=== PATIENT | female | born 1990 | race American Indian/Alaskan Native ===

== ENCOUNTER 2019-07-18 11:20 | Inpatient (IN) | payer MEDICAID ==
--- NOTE | 2019-07-18 11:31 | Event Note ---
ED Screening Note Date of service: 07/18/19 Time: 11:27 ED Screening Note: This is a 28 y.o. F. that presents to the ER with nausea and vomiting x 1 week. Patient reports she is 14 weeks . Followed by [facility] in [place]. PMH DM1 Patient states she was placed on phenergan which is not working. LMP 04/12/2019, A1 This initial assessment/diagnostic orders/clinical plan/treatment(s) is/are subject to change based on patients health status, clinical progression and re- assessment by fellow clinical providers in the ED. Further treatment and workup at subsequent clinical providers discretion. Patient/guardian urged not to elope from the ED as their condition may be serious if not clinically assessed and managed. Initial orders include: Labs Accucheck 229
[2019-07-18] MEDS ORDERED: NACL 0.9% 1000 ML 1,000 ML IV ONE ×2 (11:40→14:20)
--- NOTE | 2019-07-18 11:48 | Emergency Department Report ---
HPI <CARTER BASURTO - Last Filed: 07/18/19 14:28> - HPI HPI: 28 YO FEMALE PRESENTS 14 W WITH NAUSEA VOMITING AND DIARRHEA. REPORTS BEING TYPE I DM ON INSULIN. NO FEVER OR CHILLS. JUST WEAK. 14 W . DENIES COUGH OR CONGESTION. DENIES DYSURIA OR BACK PAIN. DENIES VAG BLEED OR DISCHARGE HAS SEEN [facility] AND THEY ARE "DOING NOTHING" [id number] DENIES DRUGS/ETOH/CIG LMP 6-8 EDC 3-8-20 <TRANG HINES - Last Filed: 07/18/19 15:43> - General Chief Complaint: Nausea/Vomiting/Diarrhea Time Seen by Provider: 07/18/19 11:27 ED Past Medical Hx <CARTER BASURTO - Last Filed: 07/18/19 14:28> - Past Medical History Previous Medical History?: Yes Hx Diabetes: Yes - Surgical History Past Surgical History?: No - Family History Family history: no significant - Social History Smoking Status: Never Smoker Substance Use Type: None <TRANG HINES - Last Filed: 07/18/19 15:43> - Medications Home Medications: Home Medications Medication Instructions Recorded Confirmed Last Taken Type Insulin Glargine [Lantus] 30 unit SUB-Q QHS 07/18/19 07/18/19 Unknown History Lispro Insulin [HumaLOG] 1 - 10 unit SQ DAILY 07/18/19 07/18/19 Unknown History Vit-Fe Fumar-FA [ 1 tab PO DAILY 07/18/19 07/18/19 Unknown History Vitamin] ED Review of Systems ROS: Stated complaint: 14 WKS /N/V Other details as noted in HPI <CARTER BASURTO - Last Filed: 07/18/19 14:28> ROS: Stated complaint: 14 WKS /N/V Other details as noted in HPI Comment: All other systems reviewed and negative <TRANG HINES - Last Filed: 07/18/19 15:43> Physical Exam - Physical Exam Vital Signs: Vital Signs 07/18/19 07/18/19 11:27 11:30 Temperature 97.7 F Pulse Rate 98 H 137 H Respiratory 16 Rate Blood Pressure 145/102 O2 Sat by Pulse 98 Oximetry <CARTER BASURTO - Last Filed: 07/18/19 14:28> - Physical Exam Vital Signs: Vital Signs 07/18/19 07/18/19 11:27 11:30 Temperature 97.7 F Pulse Rate 98 H 137 H Respiratory 16 Rate Blood Pressure 145/102 O2 Sat by Pulse 98 Oximetry Physical Exam: ALERT AND ORIENTED NO FOCAL DEFICIT S1 S2 HR 90 ON EXAM LUNGS CTA ABD SNT NO CVA TENDERNESS NO JVD NO EDEMA <TRANG HINES - Last Filed: 07/18/19 15:43> ED Course Vital Signs 07/18/19 07/18/19 11:27 11:30 Temperature 97.7 F Pulse Rate 98 H 137 H Respiratory 16 Rate Blood Pressure 145/102 O2 Sat by Pulse 98 Oximetry - Reevaluation(s) Reevaluation #1: 07/18/19 14:24 Patient examined by me. Patient reports that her nausea is improved but she continues to feel weak overall. Patient's labs were reviewed and show significant leukocytosis. Patient denies fever. UA unremarkable for UTI. Patient complains of some mild lower abdominal pain with minimal tenderness on examination. Patient denies previous abdominal surgeries. She reports by mouth intolerance for several days. She has received 1 L of normal saline, 3 units of regular insulin, and 4 mg of Zofran. Repeat heart rate noted to be in the 130s. Requested a repeat vital signs, case monitor, EEG, additional normal saline, and repeat was glucose test was ordered and insulin insulin was provided at 12:56 PM. Patient has an anion gap metabolic acidosis can be due to DKA versus starvation ketosis secondary to dehydration and by mouth intolerance. By mouth potassium ordered however the patient cannot tolerate by mouth dosing IV will be ordered. Plan to admit to hospitalist service with [facility] consultation. <CARTER BASURTO C - Last Filed: 07/18/19 14:28> Vital Signs 07/18/19 07/18/19 11:27 11:30 Temperature 97.7 F Pulse Rate 98 H 137 H Respiratory 16 Rate Blood Pressure 145/102 O2 Sat by Pulse 98 Oximetry - Reevaluation(s) Reevaluation #2: 07/18/19 15:34 [facility] AWARE OF PT PRESENTATION. DR TEJADA PUBLIC RELATIONS ACCOUNT SUPERVISOR AND WILL FOLLOW WITH DR MYERS. CONCURS WITH ADMIT FOR HYPEREMESIS. <PJDiyaTRANG BAUMANN A - Last Filed: 07/18/19 15:43> ED Medical Decision Making - Lab Data Result diagrams: 07/18/19 11:40 07/18/19 11:40 <SHERINEMAMIECARTER C - Last Filed: 07/18/19 14:28> - Lab Data Result diagrams: 07/18/19 11:40 07/18/19 11:40 - EKG Data EKG shows normal: sinus rhythm Rate: tachycardia - EKG Data Interpretation: no acute changes - Radiology Data Radiology results: image reviewed - Medical Decision Making Lab Results 07/18/19 07/18/19 07/18/19 Range/Units 11:34 11:40 11:40 WBC 22.2 H (4.5-11.0) K/mm3 RBC 5.14 H (3.65-5.03) M/mm3 Hgb 15.4 H (10.1-14.3) gm/dl Hct 44.6 H (30.3-42.9) % MCV 87 (79-97) fl MCH 30 (28-32) pg MCHC 34 (30-34) % RDW 14.1 (13.2-15.2) % Plt Count 489 H (140-440) K/mm3 Add Manual Diff Complete Total Counted 100 Seg Neuts % (Manual) 86.0 H (40.0-70.0) % Band Neutrophils % 1.0 % Lymphocytes % (Manual) 10.0 L (13.4-35.0) % Reactive Lymphs % (Man) 1.0 % Monocytes % (Manual) 2.0 (0.0-7.3) % Eosinophils % (Manual) 0 (0.0-4.3) % Basophils % (Manual) 0 (0.0-1.8) % Metamyelocytes % 0 % Myelocytes % 0 % Promyelocytes % 0 % Blast Cells % 0 % Nucleated RBC % Not Reportable Seg Neutrophils # Man 19.1 H (1.8-7.7) K/mm3 Band Neutrophils # 0.2 K/mm3 Lymphocytes # (Manual) 2.2 (1.2-5.4) K/mm3 Abs React Lymphs (Man) 0.2 K/mm3 Monocytes # (Manual) 0.4 (0.0-0.8) K/mm3 Eosinophils # (Manual) 0.0 (0.0-0.4) K/mm3 Basophils # (Manual) 0.0 (0.0-0.1) K/mm3 Metamyelocytes # 0.0 K/mm3 Myelocytes # 0.0 K/mm3 Promyelocytes # 0.0 K/mm3 Blast Cells # 0.0 K/mm3 WBC Morphology Not Reportable Hypersegmented Neuts Not Reportable Hyposegmented Neuts Not Reportable Hypogranular Neuts Not Reportable Smudge Cells Not Reportable Toxic Granulation Not Reportable Toxic Vacuolation Not Reportable Dohle Bodies Not Reportable Pelger-Huet Anomaly Not Reportable Janette Rods Not Reportable Platelet Estimate Consistent w auto Clumped Platelets Not Reportable Plt Clumps, EDTA Not Reportable Large Platelets Not Reportable Giant Platelets Not Reportable Platelet Satelliting Not Reportable Plt Morphology Comment Not Reportable RBC Morphology Not Reportable Dimorphic RBCs Not Reportable Polychromasia Not Reportable Hypochromasia Not Reportable Poikilocytosis Few Anisocytosis Few Microcytosis Not Reportable Macrocytosis Not Reportable Spherocytes Not Reportable Pappenheimer Bodies Not Reportable Sickle Cells Not Reportable Target Cells Not Reportable Tear Drop Cells Not Reportable Ovalocytes Not Reportable Helmet Cells Not Reportable Danielle-Reddell Bodies Not Reportable [place] Rings Not Reportable [place] Cells Not Reportable Bite Cells Not Reportable Crenated Cell Not Reportable Elliptocytes Not Reportable Acanthocytes (Spur) Not Reportable Rouleaux Not Reportable Hemoglobin C Crystals Not Reportable Schistocytes Not Reportable Malaria parasites Not Reportable Eddie Bodies Not Reportable Hem Pathologist Commnt No VBG pH (7.320-7.420) Sodium 132 L (137-145) mmol/L Potassium 3.4 L (3.6-5.0) mmol/L Chloride 89.2 L (98-107) mmol/L Carbon Dioxide 14 L (22-30) mmol/L Anion Gap 32 mmol/L BUN 8 (7-17) mg/dL Creatinine 0.9 (0.7-1.2) mg/dL Estimated GFR > 60 ml/min BUN/Creatinine Ratio 9 % Glucose 242 H (65-100) mg/dL POC Glucose 229 H (70-105) Calcium 9.7 (8.4-10.2) mg/dL Total Bilirubin 0.40 (0.1-1.2) mg/dL AST 16 (5-40) units/L ALT 11 (7-56) units/L Alkaline Phosphatase 66 (35-129) units/L Total Protein 8.7 H (6.3-8.2) g/dL Albumin 4.3 (3.9-5) g/dL Albumin/Globulin Ratio 1.0 % Lipase (13-60) units/L Urine Color (Yellow) Urine Turbidity (Clear) Urine pH (5.0-7.0) Ur Specific [place] (1.003-1.030) Urine Protein (Negative) mg/dL Urine Glucose (UA) (Negative) mg/dL Urine Ketones (Negative) mg/dL Urine Blood (Negative) Urine Nitrite (Negative) Ur Reducing Substances Urine Bilirubin (Negative) Urine Ictotest Urine Urobilinogen (<2.0) mg/dL Ur Leukocyte Esterase (Negative) Urine WBC (Auto) (0.0-6.0) /HPF Urine RBC (Auto) (0.0-6.0) /HPF U Epithel Cells (Auto) (0-13.0) /HPF Urine Bacteria (Auto) (Negative) /HPF Urine Mucus /HPF 07/18/19 07/18/19 07/18/19 Range/Units 11:40 11:51 Unknown WBC (4.5-11.0) K/mm3 RBC (3.65-5.03) M/mm3 Hgb (10.1-14.3) gm/dl Hct (30.3-42.9) % MCV (79-97) fl MCH (28-32) pg MCHC (30-34) % RDW (13.2-15.2) % Plt Count (140-440) K/mm3 Add Manual Diff Total Counted Seg Neuts % (Manual) (40.0-70.0) % Band Neutrophils % % Lymphocytes % (Manual) (13.4-35.0) % Reactive Lymphs % (Man) % Monocytes % (Manual) (0.0-7.3) % Eosinophils % (Manual) (0.0-4.3) % Basophils % (Manual) (0.0-1.8) % Metamyelocytes % % Myelocytes % % Promyelocytes % % Blast Cells % % Nucleated RBC % Seg Neutrophils # Man (1.8-7.7) K/mm3 Band Neutrophils # K/mm3 Lymphocytes # (Manual) (1.2-5.4) K/mm3 Abs React Lymphs (Man) K/mm3 Monocytes # (Manual) (0.0-0.8) K/mm3 Eosinophils # (Manual) (0.0-0.4) K/mm3 Basophils # (Manual) (0.0-0.1) K/mm3 Metamyelocytes # K/mm3 Myelocytes # K/mm3 Promyelocytes # K/mm3 Blast Cells # K/mm3 WBC Morphology Hypersegmented Neuts Hyposegmented Neuts Hypogranular Neuts Smudge Cells Toxic Granulation Toxic Vacuolation Dohle Bodies Pelger-Huet Anomaly Janette Rods Platelet Estimate Clumped Platelets Plt Clumps, EDTA Large Platelets Giant Platelets Platelet Satelliting Plt Morphology Comment RBC Morphology Dimorphic RBCs Polychromasia Hypochromasia Poikilocytosis Anisocytosis Microcytosis Macrocytosis Spherocytes Pappenheimer Bodies Sickle Cells Target Cells Tear Drop Cells Ovalocytes Helmet Cells Danielle-Reddell Bodies [place] Rings Richard Cells Bite Cells Crenated Cell Elliptocytes Acanthocytes (Spur) Rouleaux Hemoglobin C Crystals Schistocytes Malaria parasites Eddie Bodies Hem Pathologist Commnt VBG pH 7.295 L (7.320-7.420) Sodium (137-145) mmol/L Potassium (3.6-5.0) mmol/L Chloride (98-107) mmol/L Carbon Dioxide (22-30) mmol/L Anion Gap mmol/L BUN (7-17) mg/dL Creatinine (0.7-1.2) mg/dL Estimated GFR ml/min BUN/Creatinine Ratio % Glucose (65-100) mg/dL POC Glucose (70-105) Calcium (8.4-10.2) mg/dL Total Bilirubin (0.1-1.2) mg/dL AST (5-40) units/L ALT (7-56) units/L Alkaline Phosphatase (35-129) units/L Total Protein (6.3-8.2) g/dL Albumin (3.9-5) g/dL Albumin/Globulin Ratio % Lipase 38 (13-60) units/L Urine Color Yellow (Yellow) Urine Turbidity Slightly-cloudy (Clear) Urine pH 5.0 (5.0-7.0) Ur Specific [place] 1.017 (1.003-1.030) Urine Protein >2000 mg dl (Negative) mg/dL Urine Glucose (UA) >=500 (Negative) mg/dL Urine Ketones 80 (Negative) mg/dL Urine Blood Mod (Negative) Urine Nitrite Neg (Negative) Ur Reducing Substances Not Reportable Urine Bilirubin Neg (Negative) Urine Ictotest Not Reportable Urine Urobilinogen < 2.0 (<2.0) mg/dL Ur Leukocyte Esterase Neg (Negative) Urine WBC (Auto) 3.0 (0.0-6.0) /HPF Urine RBC (Auto) 1.0 (0.0-6.0) /HPF U Epithel Cells (Auto) 1.0 (0-13.0) /HPF Urine Bacteria (Auto) 1+ (Negative) /HPF Urine Mucus Few /HPF Vital Signs 07/18/19 07/18/19 11:27 11:30 Temperature 97.7 F Pulse Rate 98 H 137 H Respiratory 16 Rate Blood Pressure 145/102 O2 Sat by Pulse 98 Oximetry PT DENIES ANY DYSURIA OR VAG BLEED OR DC; NO ABD PAIN . PT DENIES COUGH OR CONGESTION. PT DENIES FEVER OR CHILLS. BLOOD GLUCOSE NOTED ON ADMIT TO ACC VENOUS PH NOTED ADDITIONAL LABS PENDING INSULIN/NS FOR HYPERGLYCEMIA; RN HAD DIFFICULTY PLACING LINE; ON MY REEXAM LINE NEEDED TO BE RESTARTED ZOFRAN FOR NAUSEA VOMITING 1405 DR BASURTO AWARE OF PT PRESENTATION LABS NS INFUSING INSULIN GIVEN IV 1400 REPEAT ACCU CHECK PENDING - RN AWARE 1415 DR MYERS PAGED PER DR BASURTO FOR EVAL FOR ADMIT GIVEN /VOMITING/HYPERGLYCEMIA/DKA URINE NOTED- NO NITRATES/LEUK US BEING COMPLETED AT BEDSIDE. 1500 [facility] AWARE OF PT ADMIT, SEE ABOVE 1515 DR MYERS TO SEE PT. ADMIT TO ICU FOR DKA. 12 LEAD EKG NOTED - ST PT BEING ADMITTED TO ICU FOR FURTHER MANAGEMENT. - Differential Diagnosis RO DKA/HYPEREMESIS V VOMITING SECONDARY TO ; RO AB; RO UTI <TRANG HINES - Last Filed: 07/18/19 15:43> Critical care attestation.: If time is entered above; I have spent that time in minutes in the direct care of this critically ill patient, excluding procedure time. <CARTER BASURTO - Last Filed: 07/18/19 14:28> Critical care attestation.: If time is entered above; I have spent that time in minutes in the direct care of this critically ill patient, excluding procedure time. <TRANG HINES - Last Filed: 07/18/19 15:43> ED Disposition <CARTER BASURTO - Last Filed: 07/18/19 14:28> Is pt being admited?: Yes Does the pt Need Aspirin: No Time of Disposition: 14:15 <TRANG HINES - Last Filed: 07/18/19 15:43> Clinical Impression: , Hyperemesis, DKA (diabetic ketoacidoses) Disposition: OP ADMIT IP TO THIS HOSP Condition: Stable
[2019-07-18 11:54] LABS: Hematocrit 44.6 % (30.3-42.9); Hemoglobin 15.4 gm/dl (10.1-14.3); Mean Corpuscular HGB Conc 34 % (30-34); Mean Corpuscular Volume 87 fl (79-97); Platelet Count 489 K/mm3 (140-440); Red Blood Count 5.14 M/mm3 (3.65-5.03); Red Cell Distribution Width 14.1 % (13.2-15.2)
[2019-07-18 12:14] LABS: Alanine Aminotransferase 11 units/L (7-56); Albumin 4.3 g/dL (3.9-5); BUN/Creatinine Ratio 9; Blood Urea Nitrogen 8 mg/dL (7-17); Calcium 9.7 mg/dL (8.4-10.2); Hemolysis Index 36
[2019-07-18] MEDS ORDERED: ZOFRAN IV ONE (12:23)
[2019-07-18] MEDS ORDERED: HumuLIN R IV ONE (12:31)
[2019-07-18 13:42] LABS: Bacteria,Urine 1+ /HPF (Negative); Bilirubin,Urine NEG (Negative); Blood,Urine MOD (Negative); Color,Urine Yellow (Yellow); Mucus,Urine FEW /HPF; Urobilinogen,Urine < 2.0 mg/dL (<2.0)
[2019-07-18 13:43] LABS: Protein,Urine >2000 mg dL mg/dL (Negative)
[2019-07-18 14:12] LABS: Band Neutrophils # (Manual) 0.2 K/mm3; Basophils % (Manual) 0 % (0.0-1.8); Eosinophils % (Manual) 0 % (0.0-4.3); Total Cells Counted 100
[2019-07-18 14:14] LABS: Anisocytosis Few; Platelet Estimate Consistent w Auto; Poikilocytosis Few
[2019-07-18] MEDS ORDERED: K-DUR PO ONE (14:24)
[2019-07-18] MEDS ORDERED: D5/0.45NS 1,000 ML IV SCH (15:00)
--- NOTE | 2019-07-18 15:26 | Ultrasound Report ---
ULTRASOUND OBSTETRIC INDICATION / CLINICAL INFORMATION: PREG W WEAKNESS. Clinical Gestational Age (GA): 15 weeks 1 day TECHNIQUE: Transabdominal. COMPARISON: None available. FINDINGS: There is a single intrauterine . Biparietal Diameter = 2.9 cm = 15 weeks, 1 day(s). Head Circumference = 10.5 cm = 15 weeks, 0 day(s). Abdominal Circumference = 8.8 cm = 15 weeks, 0 day(s). Femur Length = 1.8 cm = 15 weeks, 1 day(s). Average Ultrasound Age (AUA) = 15 weeks, 1 day(s). HC/AC ratio: 1.2 Cephalic index: 88.1 Heart Rate: 160 beats per minute. Position: cephalic. Cervix: closed. Length in cm (if measured): 3.7 Placenta: Anterior, grade 1 and free of the os. Amniotic Fluid Volume: normal Amniotic Fluid Index (ANDREZ) in cm (if calculated): Not measured. Maternal Adnexa: No significant abnormality. anatomical survey was not performed. IMPRESSION: 1. Single, living intrauterine with estimated sonographic age of 15 weeks, 1 day(s). 2. No significant sonographic abnormality. Signer Name: Chip Young Jr, MD Signed: 07/18/2019 3:22 PM Workstation Name: [id number]
[2019-07-18 15:49] LABS: BUN/Creatinine Ratio 11; Blood Urea Nitrogen 8 mg/dL (7-17); Calcium 9.8 mg/dL (8.4-10.2); Hemolysis Index 23
[2019-07-18] MEDS ORDERED: DILAUDID IV PRN (16:25)
[2019-07-18] MEDS ORDERED: SODIUM CHLORIDE FLUSH SYRINGE 10 ML IV PRN (16:25)
[2019-07-18] MEDS ORDERED: TYLENOL PO PRN (16:25)
[2019-07-18] MEDS ORDERED: D50W (25GM) Syringe IV PRN (16:27)
[2019-07-18] MEDS ORDERED: HumuLIN R 100 UNITS in NACL 0.9% 99 ML IV SCH (17:00)
[2019-07-18] MEDS ORDERED: D5W/0.45% NACL/KCL 20 MEQ 20 MEQ/1,000 ML BAG IV ONE (17:12)
[2019-07-18] MEDS: D5W/0.45% NACL/KCL 20 MEQ 20 MEQ/1,000 ML BAG IV SCH (17:32)
[2019-07-18] MEDS: ZOFRAN IV PRN (17:37)
[2019-07-18] MEDS ORDERED: ZOFRAN ONE (17:38)
[2019-07-18 19:37] LABS: BUN/Creatinine Ratio 12; Blood Urea Nitrogen 7 mg/dL (7-17); Calcium 8.4 mg/dL (8.4-10.2); Hemolysis Index 14
[2019-07-18 21:32] LABS: BUN/Creatinine Ratio 14; Blood Urea Nitrogen 7 mg/dL (7-17); Calcium 8.6 mg/dL (8.4-10.2); Hemolysis Index 60
[2019-07-18] MEDS: PEPCID IV SCH (23:42)
[2019-07-18] MEDS: SODIUM CHLORIDE FLUSH SYRINGE 10 ML IV SCH (23:43)
[2019-07-19] MEDS: KCL 10MEQ/100ML 10 MEQ/100 ML BAG IV SCH ×7 (00:11→13:45)
[2019-07-19] MEDS ORDERED: ZOFRAN ONE ×4 (01:39→19:20)
[2019-07-19] MEDS ORDERED: NACL 0.9% 1000 ML 1,000 ML ONE (01:40)
[2019-07-19] MEDS ORDERED: D5W/0.45% NACL/KCL 20 MEQ 20 MEQ/1,000 ML BAG IV ONE ×2 (04:29→13:14)
[2019-07-19] MEDS: D5W/0.45% NACL/KCL 20 MEQ 20 MEQ/1,000 ML BAG IV SCH ×2 (04:56→13:29)
[2019-07-19 05:03] LABS: Basophils # (Auto) 0.1 K/mm3 (0.0-0.1); Basophils % (Auto) 0.6 % (0.0-1.8); Eosinophils % (Auto) 0.2 % (0.0-4.3); Hematocrit 39.1 % (30.3-42.9); Hemoglobin 13.6 gm/dl (10.1-14.3); Lymphocytes # (Auto) 2.1 K/mm3 (1.2-5.4); Lymphocytes % (Auto) 13.2 % (13.4-35.0); Mean Corpuscular HGB Conc 35 % (30-34); Mean Corpuscular Volume 87 fl (79-97); Monocytes # (Auto) 1.3 K/mm3 (0.0-0.8); Monocytes % (Auto) 8.1 % (0.0-7.3); Platelet Count 371 K/mm3 (140-440); Red Blood Count 4.48 M/mm3 (3.65-5.03); Red Cell Distribution Width 14.6 % (13.2-15.2)
[2019-07-19 05:23] LABS: Alanine Aminotransferase 9 units/L (7-56); Albumin 3.6 g/dL (3.9-5); BUN/Creatinine Ratio 10; Blood Urea Nitrogen 5 mg/dL (7-17); Calcium 8.6 mg/dL (8.4-10.2); Hemolysis Index 21
--- NOTE | 2019-07-19 06:14 | History and Physical Report ---
History of Present Illness Date of examination: 07/18/19 Date of admission: 07/18/19 15:13 Chief complaint: N/V/D for 1 day History of present illness: 28 y/o female with IDDM presents with nausea vomiting and diarrhea for 1 day.Unable to keep anything sown.Has IDDM.Is 14 weeks .No abd cramping or vaginal bleeding.No fever or chills. Past Medical History Previous Medical History?: Yes Diabetes: Yes Surgical History Past Surgical History?: No Family History Family history: no significant Social History Smoking Status: Never Smoker Substance Use Type: None Review of Systems ROS: Stated complaint: 14 WKS /N/V Other details as noted in HPI Medications and Allergies Allergies Allergy/AdvReac Type Severity Reaction Status Date / Time No Known Allergies Allergy Unverified 07/18/19 11:22 Home Medications Medication Instructions Recorded Confirmed Last Taken Type Insulin Glargine [Lantus] 30 unit SUB-Q QHS 07/18/19 07/18/19 Unknown History Lispro Insulin [HumaLOG] 1 - 10 unit SQ DAILY 07/18/19 07/18/19 Unknown History Vit-Fe Fumar-FA [ 1 tab PO DAILY 07/18/19 07/18/19 Unknown History Vitamin] Active Meds: Active Medications Acetaminophen (Tylenol) 650 mg PO Q4H PRN PRN Reason: Pain MILD(1-3)/Fever >100.5/CRUZ Dextrose (D50w (25gm) Syringe) 0 ml IV PRN PRN PRN Reason: Hypoglycemia Famotidine (Pepcid) 20 mg IV BID GENE Last Admin: 07/18/19 23:42 Dose: 20 mg Documented by: Hydromorphone HCl (Dilaudid) 0.5 mg IV Q3H PRN PRN Reason: Pain , Severe (7-10) Sodium Chloride (Nacl 0.9% 1000 Ml) 1,000 mls @ 100 mls/hr IV DIRECT GENE Insulin Human Regular 100 (units/ Sodium Chloride) 100 mls @ 1 mls/hr IV TITR GENE; Protocol Last Titration: 07/19/19 05:30 Dose: 2 units/hr, 2 mls/hr Documented by: Potassium Chloride/Dextrose/Sod Cl (D5w/0.45% Nacl/Kcl 20 Meq) 20 meq in 1,000 mls @ 125 mls/hr IV DIRECT GENE Last Admin: 07/19/19 04:56 Dose: 125 mls/hr Documented by: Ondansetron HCl (Zofran) 4 mg IV Q8H PRN PRN Reason: Nausea And Vomiting Last Admin: 07/18/19 17:37 Dose: 4 mg Documented by: Sodium Chloride (Sodium Chloride Flush Syringe 10 Ml) 10 ml IV BID GENE Last Admin: 07/18/19 23:43 Dose: 10 ml Documented by: Sodium Chloride (Sodium Chloride Flush Syringe 10 Ml) 10 ml IV PRN PRN PRN Reason: LINE FLUSH Exam - Constitutional Vitals: Temp Pulse Resp BP Pulse Ox 97.7 F 100 H 17 145/91 100 07/18/19 11:27 07/19/19 05:00 07/19/19 05:00 07/19/19 05:00 07/18/19 18:05 General appearance: Present: mild distress, well-nourished - EENT Eyes: Present: PERRL ENT: hearing intact, clear oral mucosa - Neck Neck: Present: supple, normal ROM - Respiratory Respiratory effort: normal Respiratory: bilateral: CTA - Cardiovascular Heart rate: 78 Rhythm: regular Heart Sounds: Present: S1 & S2. Absent: rub, click - Extremities Extremities: no ischemia, pulses intact, pulses symmetrical, No edema Peripheral Pulses: within normal limits - Abdominal General gastrointestinal: Present: soft, non-tender, non-distended, normal bowel sounds Female genitourinary: Present: normal - Rectal Rectal Exam: deferred - Integumentary Integumentary: Present: clear, warm, dry - Musculoskeletal Musculoskeletal: gait normal, strength equal bilaterally - Psychiatric Psychiatric: appropriate mood/affect, intact judgment & insight - Neurologic Neurologic: CNII-XII intact, moves all extremities - Allied Health Allied health notes reviewed: nursing, case management Results - Labs CBC & Chem 7: 07/19/19 04:50 07/19/19 04:50 Labs: Laboratory Last Values WBC 15.7 K/mm3 (4.5-11.0) H 07/19/19 04:50 RBC 4.48 M/mm3 (3.65-5.03) 07/19/19 04:50 Hgb 13.6 gm/dl (10.1-14.3) 07/19/19 04:50 Hct 39.1 % (30.3-42.9) 07/19/19 04:50 MCV 87 fl (79-97) 07/19/19 04:50 MCH 30 pg (28-32) 07/19/19 04:50 MCHC 35 % (30-34) H 07/19/19 04:50 RDW 14.6 % (13.2-15.2) 07/19/19 04:50 Plt Count 371 K/mm3 (140-440) 07/19/19 04:50 Lymph % (Auto) 13.2 % (13.4-35.0) L 07/19/19 04:50 [place] % (Auto) 8.1 % (0.0-7.3) H 07/19/19 04:50 Eos % (Auto) 0.2 % (0.0-4.3) 07/19/19 04:50 Baso % (Auto) 0.6 % (0.0-1.8) 07/19/19 04:50 Lymph # 2.1 K/mm3 (1.2-5.4) 07/19/19 04:50 [place] # 1.3 K/mm3 (0.0-0.8) H 07/19/19 04:50 Eos # 0.0 K/mm3 (0.0-0.4) 07/19/19 04:50 Baso # 0.1 K/mm3 (0.0-0.1) 07/19/19 04:50 Add Manual Diff Complete 07/18/19 11:40 Total Counted 100 07/18/19 11:40 Seg Neutrophils % 77.9 % (40.0-70.0) H 07/19/19 04:50 Seg Neuts % (Manual) 86.0 % (40.0-70.0) H 07/18/19 11:40 1.0 % 07/18/19 11:40 10.0 % (13.4-35.0) L 07/18/19 11:40 Reactive Lymphs % (Man) 1.0 % 07/18/19 11:40 2.0 % (0.0-7.3) 07/18/19 11:40 0 % (0.0-4.3) 07/18/19 11:40 0 % (0.0-1.8) 07/18/19 11:40 0 % 07/18/19 11:40 0 % 07/18/19 11:40 0 % 07/18/19 11:40 0 % 07/18/19 11:40 Nucleated RBC % Not Reportable 07/18/19 11:40 Seg Neutrophils # 12.3 K/mm3 (1.8-7.7) H 07/19/19 04:50 Seg Neutrophils # Man 19.1 K/mm3 (1.8-7.7) H 07/18/19 11:40 Band Neutrophils # 0.2 K/mm3 07/18/19 11:40 2.2 K/mm3 (1.2-5.4) 07/18/19 11:40 Abs React Lymphs (Man) 0.2 K/mm3 07/18/19 11:40 0.4 K/mm3 (0.0-0.8) 07/18/19 11:40 0.0 K/mm3 (0.0-0.4) 07/18/19 11:40 0.0 K/mm3 (0.0-0.1) 07/18/19 11:40 0.0 K/mm3 07/18/19 11:40 0.0 K/mm3 07/18/19 11:40 0.0 K/mm3 07/18/19 11:40 Blast Cells # 0.0 K/mm3 07/18/19 11:40 WBC Morphology Not Reportable 07/18/19 11:40 Hypersegmented Neuts Not Reportable 07/18/19 11:40 Hyposegmented Neuts Not Reportable 07/18/19 11:40 Hypogranular Neuts Not Reportable 07/18/19 11:40 Not Reportable 07/18/19 11:40 Not Reportable 07/18/19 11:40 Not Reportable 07/18/19 11:40 Not Reportable 07/18/19 11:40 Not Reportable 07/18/19 11:40 Not Reportable 07/18/19 11:40 Consistent w auto 07/18/19 11:40 Not Reportable 07/18/19 11:40 Plt Clumps, EDTA Not Reportable 07/18/19 11:40 Not Reportable 07/18/19 11:40 Not Reportable 07/18/19 11:40 Not Reportable 07/18/19 11:40 Plt Morphology Comment Not Reportable 07/18/19 11:40 RBC Morphology Not Reportable 07/18/19 11:40 Dimorphic RBCs Not Reportable 07/18/19 11:40 Not Reportable 07/18/19 11:40 Not Reportable 07/18/19 11:40 Few 07/18/19 11:40 Few 07/18/19 11:40 Not Reportable 07/18/19 11:40 Not Reportable 07/18/19 11:40 Not Reportable 07/18/19 11:40 Not Reportable 07/18/19 11:40 Not Reportable 07/18/19 11:40 Not Reportable 07/18/19 11:40 Not Reportable 07/18/19 11:40 Not Reportable 07/18/19 11:40 Not Reportable 07/18/19 11:40 Not Reportable 07/18/19 11:40 Not Reportable 07/18/19 11:40 Not Reportable 07/18/19 11:40 Not Reportable 07/18/19 11:40 Not Reportable 07/18/19 11:40 Not Reportable 07/18/19 11:40 Acanthocytes (Spur) Not Reportable 07/18/19 11:40 Rouleaux Not Reportable 07/18/19 11:40 Not Reportable 07/18/19 11:40 Not Reportable 07/18/19 11:40 Not Reportable 07/18/19 11:40 Not Reportable 07/18/19 11:40 Hem Pathologist Commnt No 07/18/19 11:40 VBG pH 7.295 (7.320-7.420) L 07/18/19 11:51 Sodium 134 mmol/L (137-145) L 07/19/19 04:50 Potassium 3.3 mmol/L (3.6-5.0) L 07/19/19 04:50 Chloride 99.6 mmol/L (98-107) 07/19/19 04:50 Carbon Dioxide 16 mmol/L (22-30) L 07/19/19 04:50 22 mmol/L 07/19/19 04:50 BUN 5 mg/dL (7-17) L 07/19/19 04:50 0.5 mg/dL (0.7-1.2) L 07/19/19 04:50 Estimated GFR > 60 ml/min 07/19/19 04:50 10 % 07/19/19 04:50 Glucose 130 mg/dL (65-100) H 07/19/19 04:50 POC Glucose 168 (70-105) H 07/19/19 02:59 8.3 % (4-6) H 07/18/19 18:31 Calcium 8.6 mg/dL (8.4-10.2) 07/19/19 04:50 0.50 mg/dL (0.1-1.2) 07/19/19 04:50 AST 13 units/L (5-40) 07/19/19 04:50 ALT 9 units/L (7-56) 07/19/19 04:50 49 units/L (35-129) 07/19/19 04:50 7.4 g/dL (6.3-8.2) 07/19/19 04:50 3.6 g/dL (3.9-5) L 07/19/19 04:50 0.9 % 07/19/19 04:50 38 units/L (13-60) 07/18/19 11:40 Yellow (Yellow) 07/18/19 Unknown Slightly-cloudy (Clear) 07/18/19 Unknown 5.0 (5.0-7.0) 07/18/19 Unknown Ur Specific [place] 1.017 (1.003-1.030) 07/18/19 Unknown >2000 mg dl mg/dL (Negative) 07/18/19 Unknown >=500 mg/dL (Negative) 07/18/19 Unknown 80 mg/dL (Negative) 07/18/19 Unknown Mod (Negative) 07/18/19 Unknown Neg (Negative) 07/18/19 Unknown Ur Reducing Substances Not Reportable 07/18/19 Unknown Neg (Negative) 07/18/19 Unknown Not Reportable 07/18/19 Unknown < 2.0 mg/dL (<2.0) 07/18/19 Unknown Ur Leukocyte Esterase Neg (Negative) 07/18/19 Unknown 3.0 /HPF (0.0-6.0) 07/18/19 Unknown 1.0 /HPF (0.0-6.0) 07/18/19 Unknown U Epithel Cells (Auto) 1.0 /HPF (0-13.0) 07/18/19 Unknown 1+ /HPF (Negative) 07/18/19 Unknown Few /HPF 07/18/19 Unknown Short CBC 07/18/19 07/19/19 Range/Units 11:40 04:50 WBC 22.2 H 15.7 H (4.5-11.0) K/mm3 Hgb 15.4 H 13.6 (10.1-14.3) gm/dl Hct 44.6 H 39.1 (30.3-42.9) % Plt Count 489 H 371 (140-440) K/mm3 BMP 07/18/19 07/18/19 07/18/19 11:40 15:16 18:31 Sodium 132 L 134 L 132 L Potassium 3.4 L 3.6 3.3 L Chloride 89.2 L 94.5 L 97.7 L Carbon Dioxide 14 L 13 L 12 L BUN 8 8 7 Creatinine 0.9 0.7 0.6 L Glucose 242 H 184 H 174 H Calcium 9.7 9.8 8.4 07/18/19 07/19/19 21:01 04:50 Sodium 132 L 134 L Potassium 3.8 3.3 L Chloride 97.7 L 99.6 Carbon Dioxide 10 L 16 L BUN 7 5 L Creatinine 0.5 L 0.5 L Glucose 211 H 130 H Calcium 8.6 8.6 Liver Function 07/18/19 07/19/19 Range/Units 11:40 04:50 Total Bilirubin 0.40 0.50 (0.1-1.2) mg/dL AST 16 13 (5-40) units/L ALT 11 9 (7-56) units/L Alkaline Phosphatase 66 49 (35-129) units/L Albumin 4.3 3.6 L (3.9-5) g/dL Urine 07/18/19 Range/Units Unknown Urine Color Yellow (Yellow) Urine pH 5.0 (5.0-7.0) Ur Specific [place] 1.017 (1.003-1.030) Urine Protein >2000 mg dl (Negative) mg/dL Urine Glucose (UA) >=500 (Negative) mg/dL - Imaging and Cardiology Imaging and Cardiology: u/s 15 weeks Assessment and Plan Assessment and plan: CCT 32 minutes Advance Directives: Yes (Full code) VTE prophylaxis?: Chemical Plan of care discussed with patient/family: Yes - Patient Problems (1) DKA (diabetic ketoacidoses) Current Visit: Yes Status: Acute Qualifiers: Diabetes mellitus type: type 1 Diabetes mellitus complication detail: without coma Qualified Code(s): E10.10 - Type 1 diabetes mellitus with ketoacidosis without coma Plan to address problem: DKA protocol initiated IV insulin drip initiated Dietitian consult requested (2) Current Visit: Yes Status: Acute Qualifiers: Weeks of gestation: 14 weeks Qualified Code(s): Z3A.14 - 14 weeks gestation of Plan to address problem: HEATER HELPER consult requested (3) Hypokalemia Current Visit: Yes Status: Acute Plan to address problem: Treated (4) DVT prophylaxis Current Visit: Yes Status: Acute Plan to address problem: On scd's and GI prophylaxis
[2019-07-19 08:40] LABS: BUN/Creatinine Ratio 10; Blood Urea Nitrogen 5 mg/dL (7-17); Calcium 8.5 mg/dL (8.4-10.2); Hemolysis Index 14
[2019-07-19] MEDS ORDERED: PEPCID IV ONE ×2 (09:32→19:20)
[2019-07-19] MEDS: PEPCID IV SCH ×2 (09:47→22:09)
[2019-07-19] MEDS: SODIUM CHLORIDE FLUSH SYRINGE 10 ML IV SCH ×2 (09:47→22:09)
[2019-07-19] MEDS ORDERED: KCL 10MEQ/100ML 10 MEQ/100 ML BAG IV ONE ×3 (10:22→13:41)
[2019-07-19] MEDS: ZOFRAN IV PRN ×2 (10:42→22:09)
[2019-07-19 13:58] LABS: BUN/Creatinine Ratio 8; Blood Urea Nitrogen 4 mg/dL (7-17); Calcium 8.8 mg/dL (8.4-10.2); Hemolysis Index 3
--- NOTE | 2019-07-19 14:12 | Consultation ---
History of Present Illness Consult date: 07/19/19 Reason for consult: other (nausea vomiting) History of present illness: Ms. Harrington this 28-year-old -[place] female who is 15 weeks and history of insulin-dependent diabetes mellitus type 1 was admitted to the hospital emergency room yesterday with severe nausea vomiting. Patient was found to have diabetic ketoacidosis and currently on insulin drip with normalization of her blood sugar and improvement in her ketoacidosis. She is overall feeling better nausea and vomiting seems to have subsided. She also receiving IV fluids. Past History Past Medical History: diabetes Social history: no significant social history Medications and Allergies Allergies Allergy/AdvReac Type Severity Reaction Status Date / Time No Known Allergies Allergy Unverified 07/18/19 11:22 Home Medications Medication Instructions Recorded Confirmed Last Taken Type Insulin Glargine [Lantus] 30 unit SUB-Q QHS 07/18/19 07/18/19 Unknown History Lispro Insulin [HumaLOG] 1 - 10 unit SQ DAILY 07/18/19 07/18/19 Unknown History Vit-Fe Fumar-FA [ 1 tab PO DAILY 07/18/19 07/18/19 Unknown History Vitamin] Active Meds: Active Medications Acetaminophen (Tylenol) 650 mg PO Q4H PRN PRN Reason: Pain MILD(1-3)/Fever >100.5/CRUZ Dextrose (D50w (25gm) Syringe) 0 ml IV PRN PRN PRN Reason: Hypoglycemia Famotidine (Pepcid) 20 mg IV BID GENE Last Admin: 07/19/19 09:47 Dose: 20 mg Documented by: Hydromorphone HCl (Dilaudid) 0.5 mg IV Q3H PRN PRN Reason: Pain , Severe (7-10) Sodium Chloride (Nacl 0.9% 1000 Ml) 1,000 mls @ 100 mls/hr IV DIRECT GNEE Insulin Human Regular 100 (units/ Sodium Chloride) 100 mls @ 1 mls/hr IV TITR GENE; Protocol Last Titration: 07/19/19 10:42 Dose: 1.5 units/hr, 1.5 mls/hr Documented by: Potassium Chloride/Dextrose/Sod Cl (D5w/0.45% Nacl/Kcl 20 Meq) 20 meq in 1,000 mls @ 125 mls/hr IV DIRECT GENE Last Admin: 07/19/19 13:29 Dose: 125 mls/hr Documented by: Ondansetron HCl (Zofran) 4 mg IV Q8H PRN PRN Reason: Nausea And Vomiting Last Admin: 07/19/19 10:42 Dose: 4 mg Documented by: Sodium Chloride (Sodium Chloride Flush Syringe 10 Ml) 10 ml IV BID GENE Last Admin: 07/19/19 09:47 Dose: 10 ml Documented by: Sodium Chloride (Sodium Chloride Flush Syringe 10 Ml) 10 ml IV PRN PRN PRN Reason: LINE FLUSH Review of Systems All systems: negative Constitutional: chills, weakness, malaise, poor appetite Gastrointestinal: nausea, vomiting Physical Examination Vital signs: Vital Signs Temp Pulse Resp BP Pulse Ox 97.7 F 98 H 16 145/102 98 07/18/19 11:27 07/18/19 11:27 07/18/19 11:27 07/18/19 11:27 07/18/19 11:27 General appearance: no acute distress, alert Eyes: non-icteric ENT: oropharynx moist Neck: supple, no JVD Ascultation: Bilateral: clear Cardiovascular: regular rate and rhythm Gastrointestinal: normoactive bowel sounds, soft, non-tender, non-distended Integumentary: normal Extremities: no cyanosis, no edema Musculoskeletal: no deformities Gait: other (Not examined) normal mental status, non-focal exam Results - Laboratory Findings CBC and BMP: 07/19/19 04:50 07/19/19 13:03 Abnormal lab findings: Abnormal Labs 07/18/19 07/18/19 07/18/19 11:34 11:40 11:40 WBC 22.2 H RBC 5.14 H Hgb 15.4 H Hct 44.6 H MCHC Plt Count 489 H Lymph % (Auto) [place] % (Auto) [place] # Seg Neutrophils % Seg Neuts % (Manual) 86.0 H Lymphocytes % (Manual) 10.0 L Seg Neutrophils # Seg Neutrophils # Man 19.1 H VBG pH Sodium 132 L Potassium 3.4 L Chloride 89.2 L Carbon Dioxide 14 L BUN Creatinine Glucose 242 H POC Glucose 229 H Hemoglobin A1c Total Protein 8.7 H Albumin 07/18/19 07/18/19 07/18/19 11:51 13:01 14:35 WBC RBC Hgb Hct MCHC Plt Count Lymph % (Auto) [place] % (Auto) [place] # Seg Neutrophils % Seg Neuts % (Manual) Lymphocytes % (Manual) Seg Neutrophils # Seg Neutrophils # Man VBG pH 7.295 L Sodium Potassium Chloride Carbon Dioxide BUN Creatinine Glucose POC Glucose 235 H 162 H Hemoglobin A1c Total Protein Albumin 07/18/19 07/18/19 07/18/19 15:16 17:10 18:31 WBC RBC Hgb Hct MCHC Plt Count Lymph % (Auto) [place] % (Auto) [place] # Seg Neutrophils % Seg Neuts % (Manual) Lymphocytes % (Manual) Seg Neutrophils # Seg Neutrophils # Man VBG pH Sodium 134 L Potassium Chloride 94.5 L Carbon Dioxide 13 L BUN Creatinine Glucose 184 H POC Glucose 149 H Hemoglobin A1c 8.3 H Total Protein Albumin 07/18/19 07/18/19 07/18/19 18:31 18:39 19:52 WBC RBC Hgb Hct MCHC Plt Count Lymph % (Auto) [place] % (Auto) [place] # Seg Neutrophils % Seg Neuts % (Manual) Lymphocytes % (Manual) Seg Neutrophils # Seg Neutrophils # Man VBG pH Sodium 132 L Potassium 3.3 L Chloride 97.7 L Carbon Dioxide 12 L BUN Creatinine 0.6 L Glucose 174 H POC Glucose 156 H 181 H Hemoglobin A1c Total Protein Albumin 07/18/19 07/18/19 07/18/19 21:01 21:09 23:45 WBC RBC Hgb Hct MCHC Plt Count Lymph % (Auto) [place] % (Auto) [place] # Seg Neutrophils % Seg Neuts % (Manual) Lymphocytes % (Manual) Seg Neutrophils # Seg Neutrophils # Man VBG pH Sodium 132 L Potassium Chloride 97.7 L Carbon Dioxide 10 L BUN Creatinine 0.5 L Glucose 211 H POC Glucose 208 H 273 H Hemoglobin A1c Total Protein Albumin 07/19/19 07/19/19 07/19/19 01:47 02:59 04:20 WBC RBC Hgb Hct MCHC Plt Count Lymph % (Auto) [place] % (Auto) [place] # Seg Neutrophils % Seg Neuts % (Manual) Lymphocytes % (Manual) Seg Neutrophils # Seg Neutrophils # Man VBG pH Sodium Potassium Chloride Carbon Dioxide BUN Creatinine Glucose POC Glucose 188 H 168 H 128 H Hemoglobin A1c Total Protein Albumin 07/19/19 07/19/19 07/19/19 04:50 04:50 05:33 WBC 15.7 H RBC Hgb Hct MCHC 35 H Plt Count Lymph % (Auto) 13.2 L [place] % (Auto) 8.1 H [place] # 1.3 H Seg Neutrophils % 77.9 H Seg Neuts % (Manual) Lymphocytes % (Manual) Seg Neutrophils # 12.3 H Seg Neutrophils # Man VBG pH Sodium 134 L Potassium 3.3 L Chloride Carbon Dioxide 16 L BUN 5 L Creatinine 0.5 L Glucose 130 H POC Glucose 163 H Hemoglobin A1c Total Protein Albumin 3.6 L 07/19/19 07/19/19 07/19/19 06:38 07:39 07:45 WBC RBC Hgb Hct MCHC Plt Count Lymph % (Auto) [place] % (Auto) [place] # Seg Neutrophils % Seg Neuts % (Manual) Lymphocytes % (Manual) Seg Neutrophils # Seg Neutrophils # Man VBG pH Sodium 134 L Potassium 3.0 L Chloride Carbon Dioxide 18 L BUN 5 L Creatinine 0.5 L Glucose 192 H POC Glucose 171 H 178 H Hemoglobin A1c Total Protein Albumin 07/19/19 07/19/19 07/19/19 08:44 09:47 10:42 WBC RBC Hgb Hct MCHC Plt Count Lymph % (Auto) [place] % (Auto) [place] # Seg Neutrophils % Seg Neuts % (Manual) Lymphocytes % (Manual) Seg Neutrophils # Seg Neutrophils # Man VBG pH Sodium Potassium Chloride Carbon Dioxide BUN Creatinine Glucose POC Glucose 202 H 139 H 123 H Hemoglobin A1c Total Protein Albumin 07/19/19 07/19/19 11:30 13:03 WBC RBC Hgb Hct MCHC Plt Count Lymph % (Auto) [place] % (Auto) [place] # Seg Neutrophils % Seg Neuts % (Manual) Lymphocytes % (Manual) Seg Neutrophils # Seg Neutrophils # Man VBG pH Sodium 131 L Potassium 3.4 L Chloride Carbon Dioxide 19 L BUN 4 L Creatinine 0.5 L Glucose 147 H POC Glucose 120 H Hemoglobin A1c Total Protein Albumin Assessment and Plan Impression: DKA, resolving 15 week Diabetes type I Recommendations: Continue with the insulin drip as per DKA protocol Continue with IV fluids Monitor electrolytes closely and replace as needed. Total critical care time 31 minute
--- NOTE | 2019-07-19 14:21 | Progress Note ---
Assessment and Plan Assessment and plan: (1) DKA (diabetic ketoacidoses) Current Visit: Yes Status: Acute Qualifiers: Diabetes mellitus type: type 1 Diabetes mellitus complication detail: without coma Qualified Code(s): E10.10 - Type 1 diabetes mellitus with ketoacidosis without coma Plan to address problem: DKA protocol initiated IV insulin drip initiated Dietitian consult requested Patient still had persistent nausea and vomiting - Continue with zofran - [facility] consulted (2) Current Visit: Yes Status: Acute Qualifiers: Weeks of gestation: 14 weeks Qualified Code(s): Z3A.14 - 14 weeks gestation of Plan to address problem: 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 The aggregate critical care time was [31] minutes. This time is in addition to time spent performing reported procedures but includes the following: [x] Data Review and interpretation [x] Patient assessment and monitoring of vital signs [x] Documentation [x] Medication orders and management History Interval history: Patient was seen and evaluated this morning, patient has nausea and vomiting. Hospitalist Physical - Physical exam Narrative exam: Not in cardiopulmonary distress. The patient appeared well nourished and normally developed. Vital signs as documented. Head exam is unremarkable. No scleral icterus . Neck is without jugular venous distension, thyromegaly, or carotid bruits. Lungs are clear to auscultation. Cardiac exam reveals regular rate and Rhythm. Abdominal exam reveals normal bowel sounds. Extremities are nonedematous and both femoral and pedal pulses are normal. LEATHER REPAIRER: Alert and oriented 3. No focal weakness. - Constitutional Vitals: Temp Pulse Resp BP Pulse Ox 98.6 F 107 H 17 118/76 100 07/19/19 11:26 07/19/19 11:26 07/19/19 11:26 07/19/19 11:26 07/19/19 11:26 General appearance: Present: mild distress, well-nourished Results - Labs CBC & Chem 7: 07/19/19 04:50 07/19/19 13:03 Labs: Laboratory Last Values WBC 15.7 K/mm3 (4.5-11.0) H 07/19/19 04:50 RBC 4.48 M/mm3 (3.65-5.03) 07/19/19 04:50 Hgb 13.6 gm/dl (10.1-14.3) 07/19/19 04:50 Hct 39.1 % (30.3-42.9) 07/19/19 04:50 MCV 87 fl (79-97) 07/19/19 04:50 MCH 30 pg (28-32) 07/19/19 04:50 MCHC 35 % (30-34) H 07/19/19 04:50 RDW 14.6 % (13.2-15.2) 07/19/19 04:50 Plt Count 371 K/mm3 (140-440) 07/19/19 04:50 Lymph % (Auto) 13.2 % (13.4-35.0) L 07/19/19 04:50 [place] % (Auto) 8.1 % (0.0-7.3) H 07/19/19 04:50 Eos % (Auto) 0.2 % (0.0-4.3) 07/19/19 04:50 Baso % (Auto) 0.6 % (0.0-1.8) 07/19/19 04:50 Lymph # 2.1 K/mm3 (1.2-5.4) 07/19/19 04:50 [place] # 1.3 K/mm3 (0.0-0.8) H 07/19/19 04:50 Eos # 0.0 K/mm3 (0.0-0.4) 07/19/19 04:50 Baso # 0.1 K/mm3 (0.0-0.1) 07/19/19 04:50 Add Manual Diff Complete 07/18/19 11:40 Total Counted 100 07/18/19 11:40 Seg Neutrophils % 77.9 % (40.0-70.0) H 07/19/19 04:50 Seg Neuts % (Manual) 86.0 % (40.0-70.0) H 07/18/19 11:40 1.0 % 07/18/19 11:40 10.0 % (13.4-35.0) L 07/18/19 11:40 Reactive Lymphs % (Man) 1.0 % 07/18/19 11:40 2.0 % (0.0-7.3) 07/18/19 11:40 0 % (0.0-4.3) 07/18/19 11:40 0 % (0.0-1.8) 07/18/19 11:40 0 % 07/18/19 11:40 0 % 07/18/19 11:40 0 % 07/18/19 11:40 0 % 07/18/19 11:40 Nucleated RBC % Not Reportable 07/18/19 11:40 Seg Neutrophils # 12.3 K/mm3 (1.8-7.7) H 07/19/19 04:50 Seg Neutrophils # Man 19.1 K/mm3 (1.8-7.7) H 07/18/19 11:40 Band Neutrophils # 0.2 K/mm3 07/18/19 11:40 2.2 K/mm3 (1.2-5.4) 07/18/19 11:40 Abs React Lymphs (Man) 0.2 K/mm3 07/18/19 11:40 0.4 K/mm3 (0.0-0.8) 07/18/19 11:40 0.0 K/mm3 (0.0-0.4) 07/18/19 11:40 0.0 K/mm3 (0.0-0.1) 07/18/19 11:40 0.0 K/mm3 07/18/19 11:40 0.0 K/mm3 07/18/19 11:40 0.0 K/mm3 07/18/19 11:40 Blast Cells # 0.0 K/mm3 07/18/19 11:40 WBC Morphology Not Reportable 07/18/19 11:40 Hypersegmented Neuts Not Reportable 07/18/19 11:40 Hyposegmented Neuts Not Reportable 07/18/19 11:40 Hypogranular Neuts Not Reportable 07/18/19 11:40 Not Reportable 07/18/19 11:40 Not Reportable 07/18/19 11:40 Not Reportable 07/18/19 11:40 Not Reportable 07/18/19 11:40 Not Reportable 07/18/19 11:40 Not Reportable 07/18/19 11:40 Consistent w auto 07/18/19 11:40 Not Reportable 07/18/19 11:40 Plt Clumps, EDTA Not Reportable 07/18/19 11:40 Not Reportable 07/18/19 11:40 Not Reportable 07/18/19 11:40 Not Reportable 07/18/19 11:40 Plt Morphology Comment Not Reportable 07/18/19 11:40 RBC Morphology Not Reportable 07/18/19 11:40 Dimorphic RBCs Not Reportable 07/18/19 11:40 Not Reportable 07/18/19 11:40 Not Reportable 07/18/19 11:40 Few 07/18/19 11:40 Few 07/18/19 11:40 Not Reportable 07/18/19 11:40 Not Reportable 07/18/19 11:40 Not Reportable 07/18/19 11:40 Not Reportable 07/18/19 11:40 Not Reportable 07/18/19 11:40 Not Reportable 07/18/19 11:40 Not Reportable 07/18/19 11:40 Not Reportable 07/18/19 11:40 Not Reportable 07/18/19 11:40 Not Reportable 07/18/19 11:40 Not Reportable 07/18/19 11:40 Not Reportable 07/18/19 11:40 Not Reportable 07/18/19 11:40 Not Reportable 07/18/19 11:40 Not Reportable 07/18/19 11:40 Acanthocytes (Spur) Not Reportable 07/18/19 11:40 Rouleaux Not Reportable 07/18/19 11:40 Not Reportable 07/18/19 11:40 Not Reportable 07/18/19 11:40 Not Reportable 07/18/19 11:40 Not Reportable 07/18/19 11:40 Hem Pathologist Commnt No 07/18/19 11:40 VBG pH 7.295 (7.320-7.420) L 07/18/19 11:51 Sodium 131 mmol/L (137-145) L 07/19/19 13:03 Potassium 3.4 mmol/L (3.6-5.0) L 07/19/19 13:03 Chloride 98.0 mmol/L (98-107) 07/19/19 13:03 Carbon Dioxide 19 mmol/L (22-30) L 07/19/19 13:03 17 mmol/L 07/19/19 13:03 BUN 4 mg/dL (7-17) L 07/19/19 13:03 0.5 mg/dL (0.7-1.2) L 07/19/19 13:03 Estimated GFR > 60 ml/min 07/19/19 13:03 8 % 07/19/19 13:03 Glucose 147 mg/dL (65-100) H 07/19/19 13:03 POC Glucose 120 (70-105) H 07/19/19 11:30 8.3 % (4-6) H 07/18/19 18:31 Calcium 8.8 mg/dL (8.4-10.2) 07/19/19 13:03 0.50 mg/dL (0.1-1.2) 07/19/19 04:50 AST 13 units/L (5-40) 07/19/19 04:50 ALT 9 units/L (7-56) 07/19/19 04:50 49 units/L (35-129) 07/19/19 04:50 7.4 g/dL (6.3-8.2) 07/19/19 04:50 3.6 g/dL (3.9-5) L 07/19/19 04:50 0.9 % 07/19/19 04:50 38 units/L (13-60) 07/18/19 11:40 Yellow (Yellow) 07/18/19 Unknown Slightly-cloudy (Clear) 07/18/19 Unknown 5.0 (5.0-7.0) 07/18/19 Unknown Ur Specific [place] 1.017 (1.003-1.030) 07/18/19 Unknown >2000 mg dl mg/dL (Negative) 07/18/19 Unknown >=500 mg/dL (Negative) 07/18/19 Unknown 80 mg/dL (Negative) 07/18/19 Unknown Mod (Negative) 07/18/19 Unknown Neg (Negative) 07/18/19 Unknown Ur Reducing Substances Not Reportable 07/18/19 Unknown Neg (Negative) 07/18/19 Unknown Not Reportable 07/18/19 Unknown < 2.0 mg/dL (<2.0) 07/18/19 Unknown Ur Leukocyte Esterase Neg (Negative) 07/18/19 Unknown 3.0 /HPF (0.0-6.0) 07/18/19 Unknown 1.0 /HPF (0.0-6.0) 07/18/19 Unknown U Epithel Cells (Auto) 1.0 /HPF (0-13.0) 07/18/19 Unknown 1+ /HPF (Negative) 07/18/19 Unknown Few /HPF 07/18/19 Unknown Active Medications - Current Medications Current Medications: Generic Name Dose Route Start Last Admin Trade Name Freq PRN Reason Stop Dose Admin Acetaminophen 650 mg 07/18/19 16:25 Tylenol PO Q4H PRN Pain MILD(1-3)/Fever >100.5/CRUZ Dextrose 0 ml 07/18/19 16:27 D50w (25gm) Syringe IV PRN PRN Hypoglycemia Famotidine 20 mg 07/18/19 22:00 07/19/19 09:47 Pepcid IV 20 mg BID GENE Administration Hydromorphone HCl 0.5 mg 07/18/19 16:25 Dilaudid IV Q3H PRN Pain , Severe (7-10) Sodium Chloride 1,000 mls @ 100 mls/hr 07/18/19 17:00 Nacl 0.9% 1000 Ml IV DIRECT GENE Insulin Human Regular 100 100 mls @ 1 mls/hr 07/18/19 17:00 07/19/19 10:42 units/ Sodium Chloride IV 1.5 units/hr TITR GENE 1.5 mls/hr Titration Protocol 1 UNITS/HR Potassium Chloride/Dextrose/Sod Cl 20 meq in 1,000 mls @ 125 mls/hr 07/18/19 17:00 07/19/19 13:29 D5w/0.45% Nacl/Kcl 20 Meq IV 125 mls/hr DIRECT GENE Administration Ondansetron HCl 4 mg 07/18/19 16:25 07/19/19 10:42 Zofran IV 4 mg Q8H PRN Administration Nausea And Vomiting Sodium Chloride 10 ml 07/18/19 22:00 07/19/19 09:47 Sodium Chloride Flush Syringe 10 Ml IV 10 ml BID GENE Administration Sodium Chloride 10 ml 07/18/19 16:25 Sodium Chloride Flush Syringe 10 Ml IV PRN PRN LINE FLUSH Nutrition/Malnutrition Assess - Dietary Evaluation Nutrition/Malnutrition Findings: Nutrition Notes Start: 07/19/19 11:36 Freq: Status: Active Protocol: Document 07/19/19 11:36 PRISCA (Rec: 07/19/19 11:43 PRISCA [id number] [email or web address]) Nutrition Notes Need for Assessment generated from: MD Order Initial or Follow up Assessment Current Diagnosis Diabetes Other Pertinent Diagnosis DKA, N/V, 14-wk Current Diet Cl liq Labs/Tests A1C 8.3 K 3 Pertinent Medications Insulin gtt, 100mEq KCl at 100ml/hr x 4 bags, D5W 1/2NS + 20mEq KCl at 125ml/hr Height 5 ft 5 in Weight 57.9 kg [place] Body Weight (kg) 56.81 BMI 21.2 Subjective/Other Information RD consulted for TF. Pt admitted with N/V; currently in ED. Burn Absent Trauma Absent GI Symptoms Nausea,Vomiting Minimum of two criteria No #1 Nutrition Diagnosis Inadequate oral intake Etiology DKA, N/V As Evidenced by Signs and Symptoms pt only on cl liq diet and is 14-wks Is patient on ventilator? No Is Patient Ambulatory and/or Out of Bed No REE-([facility]-confined to bed) 1573.848 Kcal/Kg value to use for calculation 33 Approximate Energy Requirements Using 1911 kcal/Kg Calculation Used for Recommendations Kcal/kg Additional Notes Pro needs 1.1g/kg/day Fluid needs 1ml/kcal Nutrition Intervention Change Diet Order: Continue current diet order Goal #1 PO tolerance Goal #2 Improved BG control Anticipated Discharge Needs: CHO-controlled diet Follow-Up By: 07/21/19 Additional Comments F/U: PO tolerance, diet advancement, DM diet education needs
[2019-07-19] MEDS ORDERED: REGLAN IV PRN (14:27)
[2019-07-19] MEDS ORDERED: LANTUS SUB-Q ONE (16:00)
[2019-07-19 17:08] LABS: BUN/Creatinine Ratio 8; Blood Urea Nitrogen 4 mg/dL (7-17); Calcium 8.9 mg/dL (8.4-10.2); Hemolysis Index 22
[2019-07-19] MEDS: HumuLIN R SUB-Q SCH ×2 (17:35→22:19)
[2019-07-19] MEDS: NACL 0.9% 1000 ML 1,000 ML IV SCH (18:30)
[2019-07-19] MEDS ORDERED: ZOFRAN ODT ONE (19:23)
[2019-07-20 04:55] LABS: Basophils % (Auto) 0.4 % (0.0-1.8); Eosinophils # (Auto) 0.1 K/mm3 (0.0-0.4); Eosinophils % (Auto) 1.3 % (0.0-4.3); Hematocrit 33.2 % (30.3-42.9); Hemoglobin 11.8 gm/dl (10.1-14.3); Lymphocytes # (Auto) 2.7 K/mm3 (1.2-5.4); Lymphocytes % (Auto) 24.3 % (13.4-35.0); Mean Corpuscular HGB Conc 36 % (30-34); Mean Corpuscular Volume 87 fl (79-97); Monocytes # (Auto) 1.1 K/mm3 (0.0-0.8); Monocytes % (Auto) 9.7 % (0.0-7.3); Platelet Count 343 K/mm3 (140-440); Red Blood Count 3.82 M/mm3 (3.65-5.03); Red Cell Distribution Width 14.5 % (13.2-15.2)
[2019-07-20 05:22] LABS: BUN/Creatinine Ratio 8; Blood Urea Nitrogen 3 mg/dL (7-17); Calcium 8.2 mg/dL (8.4-10.2); Hemolysis Index 36
--- NOTE | 2019-07-20 05:36 | Event Note ---
Date: 07/20/19 Potassium 2.7 this am. Will order IV replacement since pt continues to have nausea/vomiting. Follow potassium
[2019-07-20] MEDS: KCL 10MEQ/100ML 10 MEQ/100 ML BAG IV SCH ×3 (06:05→09:54)
[2019-07-20] MEDS: NACL 0.9% 1000 ML 1,000 ML IV SCH ×2 (06:45→16:54)
[2019-07-20] MEDS: SODIUM CHLORIDE FLUSH SYRINGE 10 ML IV SCH ×2 (09:53→21:30)
[2019-07-20] MEDS: HumuLIN R SUB-Q SCH ×4 (09:53→21:36)
[2019-07-20] MEDS: PEPCID IV SCH ×2 (09:53→21:30)
[2019-07-20] MEDS ORDERED: ZOFRAN ORAL LIQ PO SCH (12:00)
[2019-07-20] MEDS: ZOFRAN ODT PO SCH ×2 (12:47→16:54)
--- NOTE | 2019-07-20 18:27 | Progress Note ---
Subjective Date of service: 07/20/19 Objective - Constitutional Vitals: Vital Signs - 12hr 07/20/19 07:31 Temperature 98.0 F Respiratory 18 Rate Blood Pressure 124/88 - Labs CBC & Chem 7: 07/20/19 04:29 07/20/19 04:29 Labs: Abnormal lab results 07/19/19 07/19/19 07/20/19 Range/Units 15:48 21:57 04:29 WBC 11.3 H (4.5-11.0) K/mm3 MCHC 36 H (30-34) % [place] % (Auto) 9.7 H (0.0-7.3) % [place] # 1.1 H (0.0-0.8) K/mm3 Sodium (137-145) mmol/L Potassium (3.6-5.0) mmol/L BUN (7-17) mg/dL Creatinine (0.7-1.2) mg/dL Glucose (65-100) mg/dL POC Glucose 259 H 189 H (70-105) Calcium (8.4-10.2) mg/dL 07/20/19 07/20/19 07/20/19 Range/Units 04:29 07:38 11:56 WBC (4.5-11.0) K/mm3 MCHC (30-34) % [place] % (Auto) (0.0-7.3) % [place] # (0.0-0.8) K/mm3 Sodium 136 L (137-145) mmol/L Potassium 2.7 L* D (3.6-5.0) mmol/L BUN 3 L (7-17) mg/dL Creatinine 0.4 L (0.7-1.2) mg/dL Glucose 58 L (65-100) mg/dL POC Glucose 66 L 171 H (70-105) Calcium 8.2 L (8.4-10.2) mg/dL 07/20/19 Range/Units 16:37 WBC (4.5-11.0) K/mm3 MCHC (30-34) % [place] % (Auto) (0.0-7.3) % [place] # (0.0-0.8) K/mm3 Sodium (137-145) mmol/L Potassium (3.6-5.0) mmol/L BUN (7-17) mg/dL Creatinine (0.7-1.2) mg/dL Glucose (65-100) mg/dL POC Glucose 168 H (70-105) Calcium (8.4-10.2) mg/dL
--- NOTE | 2019-07-20 21:01 | Progress Note ---
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 Potassium improvement. Not been bed and eating ice chips Objective - Exam Narrative Exam: Constitutional: Well-nourished well-developed. In no distress Head: Normocephalic atraumatic Eyes: Pupils are equal round and reactive to light Nose: No enlarged turbinates, no septal deviation. Mouth: Moist mucous membranes. Neck: Supple no thyromegaly. No bruit. No JVD Heart: Regular rate and rhythm, S1-S2 normal. No rubs murmurs or gallop Lungs: Clear to auscultation bilaterally. no rales or rhonchi Abdomen: Soft, nontender. Bowel sound are present. Extremities: No edema, no cyanosis, no clubbing. Neuro: Alert oriented Oriented x3. No focal sensory or motor deficit. Skin: No rashes or hyperpigmented spots Musculoskeletal system: No joint pain or swelling Hematological: No petechia or subcutanous hemorrhages. Immunological: No multiple septic spots on the skin Lymphatic: No generalized lymphadenopathy Psychiatry: Euthymic. Calm. - Constitutional Vitals: Vital Signs - 12hr 07/20/19 07/20/19 07/20/19 11:50 17:01 19:35 Temperature 98.0 F 98.0 F 98.1 F Pulse Rate 97 H 102 H Respiratory 18 18 18 Rate Blood Pressure 128/88 126/88 110/72 O2 Sat by Pulse 100 93 Oximetry 07/20/19 20:31 Temperature Pulse Rate 105 H Respiratory Rate Blood Pressure O2 Sat by Pulse Oximetry - Labs CBC & Chem 7: 07/20/19 04:29 07/20/19 04:29 Labs: Abnormal lab results 07/19/19 07/19/19 07/20/19 Range/Units 15:48 21:57 04:29 WBC 11.3 H (4.5-11.0) K/mm3 MCHC 36 H (30-34) % [place] % (Auto) 9.7 H (0.0-7.3) % [place] # 1.1 H (0.0-0.8) K/mm3 Sodium (137-145) mmol/L Potassium (3.6-5.0) mmol/L BUN (7-17) mg/dL Creatinine (0.7-1.2) mg/dL Glucose (65-100) mg/dL POC Glucose 259 H 189 H (70-105) Calcium (8.4-10.2) mg/dL 07/20/19 07/20/19 07/20/19 Range/Units 04:29 07:38 11:56 WBC (4.5-11.0) K/mm3 MCHC (30-34) % [place] % (Auto) (0.0-7.3) % [place] # (0.0-0.8) K/mm3 Sodium 136 L (137-145) mmol/L Potassium 2.7 L* D (3.6-5.0) mmol/L BUN 3 L (7-17) mg/dL Creatinine 0.4 L (0.7-1.2) mg/dL Glucose 58 L (65-100) mg/dL POC Glucose 66 L 171 H (70-105) Calcium 8.2 L (8.4-10.2) mg/dL 07/20/19 07/20/19 Range/Units 16:37 20:21 WBC (4.5-11.0) K/mm3 MCHC (30-34) % [place] % (Auto) (0.0-7.3) % [place] # (0.0-0.8) K/mm3 Sodium (137-145) mmol/L Potassium (3.6-5.0) mmol/L BUN (7-17) mg/dL Creatinine (0.7-1.2) mg/dL Glucose (65-100) mg/dL POC Glucose 168 H 294 H (70-105) Calcium (8.4-10.2) mg/dL
[2019-07-20 22:31] LABS: BUN/Creatinine Ratio 10; Blood Urea Nitrogen 6 mg/dL (7-17); Calcium 8.4 mg/dL (8.4-10.2); Hemolysis Index 12
[2019-07-20] MEDS ORDERED: D50W (25GM) Syringe IV PRN (23:32)
[2019-07-20] MEDS ORDERED: KCL 20MEQ/100ML 20 MEQ/100 ML BAG IV SCH (23:45)
[2019-07-21] MEDS ORDERED: MAGNESIUM SULFATE 1 GM in NACL 0.9% 50 ML IV ONE (00:33)
[2019-07-21] MEDS: KCL 10MEQ/100ML 10 MEQ/100 ML BAG IV SCH ×4 (00:51→04:47)
[2019-07-21] MEDS: NACL 0.9% 1000 ML 1,000 ML IV SCH (04:50)
[2019-07-21 06:32] LABS: Basophils % (Auto) 0.5 % (0.0-1.8); Eosinophils # (Auto) 0.1 K/mm3 (0.0-0.4); Eosinophils % (Auto) 1.2 % (0.0-4.3); Hematocrit 30.5 % (30.3-42.9); Hemoglobin 11.2 gm/dl (10.1-14.3); Lymphocytes # (Auto) 2.3 K/mm3 (1.2-5.4); Lymphocytes % (Auto) 24.1 % (13.4-35.0); Mean Corpuscular HGB Conc 37 % (30-34); Mean Corpuscular Volume 85 fl (79-97); Monocytes # (Auto) 0.9 K/mm3 (0.0-0.8); Monocytes % (Auto) 9.3 % (0.0-7.3); Platelet Count 309 K/mm3 (140-440); Red Blood Count 3.59 M/mm3 (3.65-5.03); Red Cell Distribution Width 14.3 % (13.2-15.2)
[2019-07-21 06:59] LABS: Alanine Aminotransferase 7 units/L (7-56); Albumin 2.7 g/dL (3.9-5); BUN/Creatinine Ratio 13; Blood Urea Nitrogen 5 mg/dL (7-17); Calcium 7.7 mg/dL (8.4-10.2); Hemolysis Index 13
[2019-07-21] MEDS: HumuLIN R SUB-Q SCH ×2 (08:52→12:37)
[2019-07-21] MEDS: ZOFRAN ODT PO SCH ×2 (08:55→12:38)
[2019-07-21] MEDS ORDERED: PRENATAL VITAMIN PO SCH (10:00)
[2019-07-21] MEDS ORDERED: K-DUR PO SCH (10:00)
[2019-07-21] MEDS: PEPCID IV SCH (11:02)
--- NOTE | 2019-07-21 12:31 | Discharge Summary ---
Providers - Providers Date of Admission: 07/18/19 15:13 Attending physician: SIERRA JAMES MD 07/18/19 16:25 Consult to Physician [CONS] Routine Comment: Consulting Provider: RENEE YO Physician Instructions: Reason For Exam: dka 07/18/19 16:27 Consult to Dietitian/Nutrition [CONS] Routine Physician Instructions: Reason For Exam: DKA Reason for Consult: Nutrition Recommendations Reason for Consult: Write/Manage Tube Feeding Consult to Physician [CONS] Routine Comment: Consulting Provider: RENEE YO Physician Instructions: Reason For Exam: DKA Hospitalization Condition: Stable Hospital course: 28-year-old woman who presents to the hospital complaining of nausea vomiting x1 day. Patient is 14 weeks , she was unable to keep anything down. She was found to have diabetic ketoacidosis, she was treated with insulin drip, IV fluids, her electrolytes were repleted. Her diet was advanced and she tolerated it well. She was counseled and discharged in improved condition Preventative health counseling was performed for 17 minutes Diagnosis DKA Uncontrolled type 1 diabetes 14 weeks Hypokalemia Disposition: DC-01 TO HOME OR SELFCARE Time spent for discharge: 35 minutes Core Measure Documentation - Palliative Care Palliative Care/ Comfort Measures: Not Applicable - Core Measures Any of the following diagnoses?: none Exam - Constitutional Vitals: Temp Pulse Resp BP Pulse Ox 98.3 F 87 18 121/78 100 07/21/19 08:04 07/21/19 10:00 07/21/19 08:04 07/21/19 08:04 07/21/19 08:04 General appearance: Present: no acute distress, well-nourished - EENT Eyes: Present: PERRL ENT: hearing intact, clear oral mucosa - Neck Neck: Present: supple, normal ROM - Respiratory Respiratory effort: normal Respiratory: bilateral: CTA - Cardiovascular Heart Sounds: Present: S1 & S2. Absent: rub, click - Extremities Extremities: pulses symmetrical, No edema Peripheral Pulses: within normal limits - Abdominal General gastrointestinal: Present: soft, non-tender, non-distended, normal bowel sounds Female genitourinary: Present: normal - Integumentary Integumentary: Present: clear, warm, dry - Musculoskeletal Musculoskeletal: gait normal, strength equal bilaterally - Psychiatric Psychiatric: appropriate mood/affect, intact judgment & insight - Neurologic Neurologic: CNII-XII intact, moves all extremities Plan Follow up with: PRIMARY CARE, [Referring] - 3-5 Days Forms: Work/School Release Form Prescriptions: Insulin Glargine [Lantus VIAL] 30 units SUB-Q QHS #1 vial Lispro Insulin [HumaLOG] 1 - 10 unit SQ DAILY #1 vial Ondansetron [Zofran Odt] 4 mg PO Q8HR PRN #90 tab.rapdis PRN Reason: Nausea
[2019-07-21 12:59] VITALS: BP 123/94
[2019-07-21] MEDS ORDERED: LANTUS SUB-Q SCH (22:00)
== END 2019-07-21 15:49 | disposition home or self-care (01) | DRG 781 ==
LOC: ED 11:20 → CC1 15:13 → 4A 07-19 15:19
PROVIDERS: ADMIT Internal Medicine; ATTEND Internal Medicine
DX: O24.012 Pre-existing type 1 diabetes mellitus, in pregnancy, second trimester (principal); Z79.4 Long term (current) use of insulin; Z3A.14 14 weeks gestation of pregnancy; O99.282 Endocrine, nutritional and metabolic diseases complicating pregnancy, second trimester; E10.10 Type 1 diabetes mellitus with ketoacidosis without coma; E87.6 Hypokalemia
CPT/HCPCS: 36415; 76801; 80048; 80053; 81001; 82805; 82962; 83036; 83690; 83735; 84100; 85007; 85025; 87086; 93005; 93010; 96361; 96374; 96375; 96376; G0378; J1815; J2405; J2765; J3475; J3480; J7030; Q0162